=== PATIENT | male | born 1995 | race Caucasian/White ===

== ENCOUNTER 2016-11-14 06:56 | Emergency (ER) | payer BC ==
[~2016-11-14] VITALS: Ht 195.6 cm; Wt 75.9 kg
[2016-11-14] MEDS ORDERED: ONDANSETRON 2MG/ML, 2ML IVPush ONE (07:30)
[2016-11-14] MEDS ORDERED: SODIUM CHLORIDE FLUSH 10ML SYR IVF ONE (07:30)
[2016-11-14] MEDS ORDERED: MORPHINE SULFATE 4 MG/ML, 1ML IVPush PRN (07:30)
[2016-11-14] MEDS ORDERED: ONDANSETRON 2MG/ML, 2ML ONE (07:40)
[2016-11-14] MEDS ORDERED: MORPHINE SULFATE 4 MG/ML, 1ML ONE (07:40)
[2016-11-14] MEDS ORDERED: OXYcodone/APAP 5/325MG TABLET ONE (08:14)
[2016-11-14 08:18] VITALS: BP 130/84
[2016-11-14] MEDS ORDERED: OXYcodone/APAP 5/325MG TABLET PO ONE (08:30)
== END 2016-11-14 08:21 | disposition home or self-care (01) ==
LOC: ED 08:15
DX: G89.11 Acute pain due to trauma (principal); M25.511 Pain in right shoulder; X58.XXXA Exposure to other specified factors, initial encounter; Y93.89 Activity, other specified; Y99.8 Other external cause status; Y92.009 Unspecified place in unspecified non-institutional (private) residence as the place of occurrence of the external cause
CPT/HCPCS: 73030; 96374; 96375; 99284; J2405